=== PATIENT | female | born 1965 | race Native Hawaiian/Other Pacific Islander ===

== ENCOUNTER 2023-10-31 13:35 | Emergency (ER) | payer MEDICAID ==
[~2023-10-31] VITALS: Ht 160 cm; Wt 102.1 kg
[2023-10-31 14:16] LABS: BASOPHILS ABSOLUTE AUTO 0.04 K/mm3 (0.00-0.23); BASOPHILS PERCENT AUTO 0 % (0-2); EOSINOPHILS ABSOLUTE AUTO 0.22 K/mm3 (0.00-0.68); EOSINOPHILS PERCENT AUTO 2 % (0-6); Hematocrit 41.9 % (33.0-51.0); Hemoglobin 13.7 g/dL (11.5-16.0); IMMATURE GRAN ABSOLUTE AUTO 0.03 K/mm3 (0.00-0.10); IMMATURE GRAN PERCENT AUTO 0 % (0-1); LYMPHOCYTES ABSOLUTE AUTO 2.01 K/mm3 (0.84-5.20); LYMPHOCYTES PERCENT AUTO 19 % (21-46); MONOCYTES ABSOLUTE AUTO 0.56 K/mm3 (0.16-1.47); MONOCYTES PERCENT AUTO 5 % (4-13); Mean Corpuscular HGB 28.8 pg (26.0-34.0); Mean Corpuscular HGB Conc 32.7 g/dL (31.5-36.5); Mean Corpuscular Volume 88 fL (80-100); Mean Platelet Volume 9.6 fL (9.1-12.4); NEUTROPHILS ABSOLUTE AUTO 7.54 K/mm3 (1.96-9.15); NEUTROPHILS PERCENT AUTO 73 % (41-73); Platelet Count 208 K/mm3 (150-400); RDW Coefficient Variation 13.2 % (11.7-14.2); RDW Standard Deviation 43.2 fL (35.1-46.3); Red Blood Cell Count 4.75 M/mm3 (3.80-5.20)
[2023-10-31 14:35] LABS: Albumin, Blood 3.5 g/dL (3.4-5.0); Albumin/Globulin Ratio 0.8 (0.8-1.8); Bilirubin, Total 0.4 mg/dL (0.1-1.0); Bun/Creatinine Ratio 28.2 (12.0-20.0); Calcium, Blood 9.8 mg/dL (8.5-10.1); Creatinine, Blood 1.03 mg/dL (0.40-1.00); Globulin, Blood 4.5 g/dL (2.2-4.0); Potassium, Blood 4.2 mmol/L (3.5-5.5)
[2023-10-31] MEDS ORDERED: Ketorolac Tromethamine 30mg Vial IV ONE (17:20)
[2023-10-31] MEDS ORDERED: Ondansetron HCl 2 MG / ML 2ML Vial IV ONE (17:25)
[2023-10-31 17:41] LABS: Source, Urine Clean Catch
[2023-10-31 17:53] LABS: Appearance, Urine Cloudy (Clear); Bilirubin, Urine Neg (Neg); Blood, Urine 5+ (Neg); Color, Urine Yellow (P-Yellow); Glucose Qualitative, Urine Neg (Neg); Ketones, Urine Neg (Neg); Leukocyte Esterase, Urine 3+ (Neg); Nitrite, Urine Neg (Neg); Protein, Urine 2+ (Neg); Urobilinogen, Urine NORM (Normal); pH, Urine 6.5 (5.0-8.0)
[2023-10-31 18:01] LABS: Bacteria Mod /hpf; Red Blood Cells, Urine TNTC /hpf (0-2); Squamous Epithelial Cells Few /hpf (Few); White Blood Cells, Urine TNTC /hpf (0-5); Yeast/Fungi Urine Mod /hpf
[2023-10-31] MEDS ORDERED: CefTRIAXone Sodium 1,000 MG in NS 50 ML IV ONE (18:25)
[2023-10-31] MEDS ORDERED: Cyclobenzaprine HCl 10 MG Tab PO ONE (18:40)
[2023-10-31] MEDS ORDERED: CYCL10 PO (18:41)
[2023-10-31] MEDS ORDERED: CEFU500T30 PO (18:41)
== END 2023-10-31 19:00 | disposition home or self-care (01) ==
LOC: ER 13:35
PROVIDERS: Physician Assistant
DX: N20.0 Calculus of kidney (principal); I10 Essential (primary) hypertension; I48.91 Unspecified atrial fibrillation
CPT/HCPCS: 74177; 80053; 81001; 83690; 85025; 87086; 96365-59; 96375; 99284-25; A9270; J0696; J1885; J2405; Q9967